=== PATIENT | male | born 1965 | race Caucasian/White ===

== ENCOUNTER 2017-09-16 19:39 | Emergency (ER) | payer OTHER ==
[~2017-09-16] VITALS: Ht 175.3 cm; Wt 87.5 kg
[2017-09-16 20:57] LABS: BASOPHILS # (AUTO) 0.1 K/uL (0.0-8.0); EOSINOPHILS # (AUTO) 0.3 K/uL (0.0-0.7); EOSINOPHILS % (AUTO) 3.1 % (0.0-7.0); HEMATOCRIT 43.2 % (36.7-47.1); HEMOGLOBIN 14.9 g/dL (12.5-16.3); LYMPHOCYTES # (AUTO) 2.2 K/uL (20.0-40.0); MEAN CORPUSCULAR HEMOGLOBIN 31.6 uug (23.8-33.4); MEAN CORPUSCULAR HGB CONC 35 g/dL (32.5-36.3); MEAN CORPUSCULAR VOLUME 91.4 fL (73.0-96.2); MONOCYTES # (AUTO) 0.8 K/uL (2.0-10.0); MONOCYTES % (AUTO) 9.8 % (0.0-11.0); NEUTROPHILS % (AUTO) 60.1 % (38.5-71.5); PLATELET COUNT (AUTO) 217 K/uL (152-348); RED BLOOD CELL COUNT(AUTO) 4.73 MIL/uL (4.06-5.63); WHITE BLOOD COUNT (AUTO) 8.3 K/uL (3.6-10.2)
[2017-09-16 21:01] LABS: POTASSIUM 4.3 mmol/L (3.5-5.1)
--- NOTE | 2017-09-16 21:01 | NUR ---
Pt c/o sob upon exertion x3 weeks. Pt also reports that he quit smoking 1 month ago, shortly before symptons presented. Denies any ther medical hx. at bedsite. Put on monitor, resting comfortably
--- NOTE | 2017-09-16 21:02 | NUR ---
Pt to CT via w/c
--- NOTE | 2017-09-16 21:25 | NUR ---
PT BACK IN ROOM FROM CT
--- NOTE | 2017-09-16 21:54 | NUR ---
PTS DAUGHTER AT BEDSIDE
--- NOTE | 2017-09-16 22:11 | NUR ---
Patient discharged to home in stable conditon. Written and verbal after care instructions given. Patient verbalizes understanding of instructions. Ambulatory w/ stable gait
[2017-09-16 22:12] VITALS: BP 151/95
== END 2017-09-16 22:13 | disposition home or self-care (01) ==
LOC: ER 19:40
DX: J32.9 Chronic sinusitis, unspecified (principal); K21.9 Gastro-esophageal reflux disease without esophagitis; R42 Dizziness and giddiness
CPT/HCPCS: 36415; 70450; 80048; 84484; 85025; 93005; 99285; A4663; 70030-TC

== ENCOUNTER 2022-05-05 11:06 | Emergency (ER) | payer OTHER ==
[~2022-05-05] VITALS: Ht 175.3 cm; Wt 90.7 kg
[2022-05-05] MEDS ORDERED: MECLIZINE HCL 25 MG TABLET ONE (12:08)
[2022-05-05] MEDS ORDERED: MECLIZINE HCL 25 MG TABLET PO ONE (12:15)
[2022-05-05] MEDS ORDERED: IV NORMAL SALINE 500 ML BAG IV ONE (12:15)
[2022-05-05 12:29] LABS: HEMATOCRIT 45.1 % (36.7-47.1); MEAN CORPUSCULAR VOLUME 90.8 fL (73.0-96.2); PLATELET COUNT (AUTO) 279 K/uL (152-348)
[2022-05-05 12:34] LABS: CARBON DIOXIDE 29 mmol/L (21-32); CHLORIDE 102 mmol/L (98-107); GLUCOSE 86 mg/dL (74-106); POTASSIUM 3.9 mmol/L (3.5-5.1); UREA NITROGEN, BLOOD 14 mg/dL (7-18)
[2022-05-05 12:43] LABS: ALANINE AMINOTRANSFERASE 23 U/L (16-63); ALKALINE PHOSPHATASE 54 U/L (50-136); ASPARTATE AMINOTRANSFERASE 6 U/L (15-37); BILIRUBIN,DIRECT 0.1 mg/dL (0.0-0.2); BILIRUBIN,TOTAL 0.4 mg/dL (0.2-1.0); LIPASE 91 U/L (73-393); TOTAL PROTEIN, SERUM 7.6 g/dL (6.4-8.2)
--- NOTE | 2022-05-05 14:00 | NUR ---
IV removed. Catheter intact and site benign. Pressure and 4x4 gauze applied to site. No bleeding noted.
[2022-05-05] MEDS ORDERED: MECL-225 PO (14:49)
[2022-05-05] MEDS ORDERED: CEPH500T PO (14:49)
[2022-05-05] MEDS ORDERED: NAPR-1009 PO (14:49)
[2022-05-05] MEDS ORDERED: SULF1TAB48 PO (14:49)
--- NOTE | 2022-05-05 15:02 | NUR ---
Patient discharged to home in stable condition. Written and verbal after care instructions given. Patient verbalizes understanding of instructions. Stressed follow up or return to ER for worsening s/s.
[2022-05-05 15:04] VITALS: BP 145/88
== END 2022-05-05 15:04 | disposition home or self-care (01) ==
LOC: ER 11:06
DX: R10.11 Right upper quadrant pain (principal); R07.81 Pleurodynia; R42 Dizziness and giddiness; L03.211 Cellulitis of face; F17.210 Nicotine dependence, cigarettes, uncomplicated
CPT/HCPCS: 99285; 70450; 96360; 76705; 71045; 80076; 80048; 83690; 85025; 84484; 93005; 74176; J7040; A4663; J8597